=== PATIENT | female | born 1950 | race Caucasian/White ===

== ENCOUNTER 2018-11-12 20:33 | Inpatient (IN) | payer OTHER ==
[~2018-11-12] VITALS: Ht 160 cm; Wt 74.8 kg
[~2018-11-12 20:33] MED LIST: COLACE 100 MG100 MG PO; HYDROCODONE-AP1 EAC6 PO; MIRALAX17 GM PO; NOHOMEMEDICATIONS
[2018-11-12 20:37] VITALS: BP 116/74
[2018-11-12 21:11] LABS: HEMATOCRIT 46.6 % (37.0-47.0); HEMOGLOBIN 15.3 gm/dL (12.0-15.0); MCH 29.9 pg (26.0-34.0); MCHC 32.8 g/dL (28.0-37.0); MCV 91.3 fL (80.0-100.0); PLATELET COUNT 261 thou/uL (150-400); RDW 13.2 % (10.5-14.5); WBC 20.9 thou/uL (4.0-11.0)
[2018-11-12 21:21] LABS: CALCIUM 9.2 mg/dL (8.5-10.1); CREATININE 1.1 mg/dL (0.6-1.0); POTASSIUM 4.6 mmol/L (3.5-5.1)
[2018-11-12 21:27] LABS: ALBUMIN 3.5 g/dL (3.4-5.0); TOTAL BILIRUBIN 0.8 mg/dL (<0.1-1.0); TOTAL PROTEIN 6.7 g/dL (6.4-8.2)
[2018-11-12 21:52] LABS: ABSOLUTE NEUTROPHILS 19.9 thou/uL (1.4-8.2)
[2018-11-12 22:04] LABS: URINE BILIRUBIN NEGATIVE (Negative); URINE BLOOD NEGATIVE (Negative); URINE CLARITY CLEAR; URINE COLOR YELLOW; URINE GLUCOSE-RANDOM* NEGATIVE (Negative); URINE KETONES NEGATIVE (Negative); URINE NITRITE-REFLEX NEGATIVE (Negative); URINE PROTEIN (DIPSTICK) NEGATIVE (Negative); URINE UROBILINOGEN 0.2 E.U./dl (0.2-1.0)
[2018-11-12 22:08] LABS: URINE LEUKOCYTES-REFLEX 3+ (Negative)
[2018-11-12 22:42] LABS: BACTERIA-REFLEX >30 Many /HPF (None Seen); CASTS None Seen /LPF (None Seen); CRYSTALS None Seen /LPF (None Seen); SQUAMOUS None Seen /LPF (0-3); URINE RBC 0-2 Rare /HPF (0-2); URINE WBC-REFLEX >25 Many /HPF (0-5); WBC CLUMPS Many (None Seen)
[2018-11-13] VITALS (9 sets, daily range): BP systolic 112–144; BP diastolic 46–95
--- NOTE | 2018-11-13 01:56 | NUR ---
PT ARRIVED ON UNIT FROM ER AT 0030. ADMITTED WITH UTI AND RASH. RASH IS ITCHY AND PAINFUL TO THE TOUCH. DENIES NEED FOR PAIN MEDICATION. UP INDEPENDENT TO BATHROOM. RESTING COMFORTABLY. NO NEEDS VOICED. CALL LIGHT WITHIN REACH. WILL CONTINUE TO PROVIDE FREQUENT OBSERVATION.
[2018-11-13 05:53] LABS: HEMATOCRIT 43.1 % (37.0-47.0); HEMOGLOBIN 14.2 gm/dL (12.0-15.0); MCH 29.9 pg (26.0-34.0); MCV 90.7 fL (80.0-100.0); RBC 4.76 mil/uL (4.20-5.00); RDW 13.5 % (10.5-14.5); WBC 20.1 thou/uL (4.0-11.0)
[2018-11-13 06:28] LABS: CALCIUM 8.4 mg/dL (8.5-10.1)
--- NOTE | 2018-11-13 16:38 | NUR ---
PT ASSESSED AT START OF SHIFT. SKIN COVERED IN RED PAPULAR RASH THAT ITCHES AND SEAY AT TIMES. MOST HELPFUL IS IV BENEDRYL- PAIN MED DID NOT HELP AT ALL. BENEDRYL CREAM NOT HELPING EITHER. EATING AND DRINKING WELL. FEELS WIRED FROM IV STEROID- NOT ABLE TO SLEEP. HAD BM THIS AM. DR. KRAUSE CONSULTED AND WILL SEE PT TOMORROW.
--- NOTE | 2018-11-14 02:45 | NUR ---
PATIENT ALERT AND ORIENTED X4. UP ADLIB IN ROOM. CONTINUES TO HAVE RASH WITH NO OPEN AREAS NOTED. MEDICATED WITH BENEDRYL PRN MEDICATION X1 AT TIME OF THIS NOTE. COOPERATIVE WITH CARE. IVF INFUSING W/O COMPLICATION. RESTING QUIETLY.
[2018-11-14 04:33] VITALS: BP 110/49
--- NOTE | 2018-11-14 04:40 | NUR ---
PATIENT ABLE TO GET TO SLEEP SHORTLY AFTER PO BENEDRYL GIVEN AND SLEPT WELL DURING THE NIGHT. IVF INFUSING W/O COMPLICATION. WILL MONITOR.
[2018-11-14 05:34] LABS: MCH 29.8 pg (26.0-34.0); MCHC 32.7 g/dL (28.0-37.0); RBC 3.73 mil/uL (4.20-5.00); RDW 13.7 % (10.5-14.5); WBC 18.6 thou/uL (4.0-11.0)
[2018-11-14 05:36] LABS: HEMOGLOBIN 11.1 gm/dL (12.0-15.0)
[2018-11-14 05:50] LABS: ALBUMIN 2.8 g/dL (3.4-5.0); CALCIUM 8.1 mg/dL (8.5-10.1); CREATININE 0.8 mg/dL (0.6-1.0); POTASSIUM 3.7 mmol/L (3.5-5.1); TOTAL BILIRUBIN 0.2 mg/dL (<0.1-1.0); TOTAL PROTEIN 5.8 g/dL (6.4-8.2)
[2018-11-14 07:15] VITALS: BP 104/47
--- NOTE | 2018-11-14 14:59 | NUR ---
PT ADMITTED RELATED TO UTI--RASH. CM REVIEWED CHART AND SPOKE WITH CARE TEAM. CM MET WITH PT AT BEDSIDE THIS DAY. PT IS A&O X4. CM ROLE INTRODUCED. PT INDICATED SHE LIVES IN A HOUSE WITH HER SPOUSE WITH 4 STEPS TO ENTER AND NO STEPS INSIDE. 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 NO DME OR HH HX. PT INDICATED SHE PLANS TO RETURN HOME ONCE MEDICALLY STABLE. CM TO FOLLOW INDICATED WITH DC PLANNING.
[2018-11-14 16:06] VITALS: BP 123/63
--- NOTE | 2018-11-14 16:24 | NUR ---
ASSUMED CARE OF PT AT 0700. ASSESSMENT CHARTED. A&O,X4. UP AD COLLETTE, STEADY GAIT. DENIES PAIN. C/O RED RASH FROM HEAD TO TOE, FACIAL SWELLING AFTER HERBAL SUPPLEMENT. PT STATES RASH IS IMPROVING AND IS CONTROLLED. 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 MEDS GIVEN ORDERED. NO OTHER SKIN CONCERNS. PT IMPROVING TOWARDS GOALS
[2018-11-14 19:15] VITALS: BP 109/61
--- NOTE | 2018-11-15 01:53 | NUR ---
A&O, calm and cooperative; IVF DC; vss, afebrile. Lab reviewed. Patient had no lab order for 11/15/2018, Nursing pracitioner was aware; denied soa. Bed rest now, will keep monitoring.
[2018-11-15 04:04] VITALS: BP 138/73
[2018-11-15 07:10] VITALS: BP 127/73
[2018-11-15 08:27] LABS: ABSOLUTE NEUTROPHILS 14.6 thou/uL (1.4-8.2); BASOPHILS 0.1 % (0.0-2.0); EOSINOPHILS 1.4 % (0.0-3.0); HEMATOCRIT 35.9 % (37.0-47.0); HEMOGLOBIN 11.7 gm/dL (12.0-15.0); LYMPHOCYTES 6.1 % (24.0-44.0); MCH 29.8 pg (26.0-34.0); MCHC 32.7 g/dL (28.0-37.0); MONOCYTES 5.6 % (1.0-8.0); PLATELET COUNT 254 thou/uL (150-400); POLYS 86.8 % (36.0-66.0); RBC 3.94 mil/uL (4.20-5.00); RDW 13.7 % (10.5-14.5); WBC 16.8 thou/uL (4.0-11.0)
[2018-11-15 08:43] LABS: ALBUMIN 2.7 g/dL (3.4-5.0); CALCIUM 8.6 mg/dL (8.5-10.1); POTASSIUM 4.2 mmol/L (3.5-5.1); TOTAL BILIRUBIN 0.2 mg/dL (<0.1-1.0)
--- NOTE | 2018-11-15 12:18 | NUR ---
Assessment completed.vss.Pt was tearful early this shift regarding the rash allover her body.She sejal it has spread to her scalp. Emotional support given. Dr Weller notified and he rounded on pt. Meds and diet tolerated by pt. Pt ambulated in hallways with spouse several times after breakfast.No furtehr c/o.Will continue to monitor.
[2018-11-15 15:58] VITALS: BP 140/66
[2018-11-15 17:15] LABS: BE(vivo) -0.1 mmol/L (-2 to +3); HCO3 23.5 mmol/L (22.0-26.0); PCO2 34.7 mmHg (35.0-45.0); PO2 68.4 mmHg (80.0-100.0); pH 7.448 (7.360-7.450); sO2 94.5 % (92.0-98.0)
[2018-11-15 19:40] VITALS: BP 145/69
--- NOTE | 2018-11-15 23:00 | NUR ---
PT DENIED PAIN.PT STILL HAVE MIKE ALL OVER HER BODY,PT STATED ITCHING SUBSIDED.UP ADLIB IN ROOM WITH STEADY GAIT.PT CONT ON IV ABX ORDERED.PT ABLE TO MAKE HER NEEDS KOWN.CALL LIGHT WITHI REACH.
[2018-11-16 07:58] VITALS: BP 134/63
[2018-11-16 10:04] LABS: HEMATOCRIT 37.1 % (37.0-47.0); MCH 29.4 pg (26.0-34.0); MCHC 32.4 % (28.0-37.0); MCV 90.6 fL (80.0-100.0); RBC 4.09 mil/uL (4.20-5.00); RDW 13.5 % (10.5-14.5); WBC 14.8 thou/uL (4.0-11.0)
[2018-11-16 11:18] LABS: CALCIUM 8.8 mg/dL (8.5-10.1); CREATININE 0.9 mg/dL (0.6-1.0); POTASSIUM 3.8 mmol/L (3.5-5.1)
--- NOTE | 2018-11-16 16:06 | NUR ---
Assumed pt care at 7am.Pt reported feeling better today but still has body rash.Assessment completed.vss.Pt in bed for all meals.good appetite.Dr Weller here,order noted.Pt took shower today and ambulated in hallways several times. Dr Romero notified about consult.Abg and other labs done later this afternoon. Pt might possibly dc home this evening after seen by Dr Romero.Iv antibiotic changed to po this afternoon.Will continue to monitor.
[2018-11-16] MEDS ORDERED: CLARITIN10 M2 PO (18:36)
[2018-11-16] MEDS ORDERED: EPIPEN0.3 MG/0.1 IM (18:36)
[2018-11-16] MEDS ORDERED: PREDNISONE 20 M20 MG PO (18:36)
[2018-11-16] MEDS ORDERED: PEPCID20 MG PO (18:36)
[2018-11-16] MEDS ORDERED: METRONIDAZOLE500 M4 PO (18:36)
[2018-11-16] MEDS ORDERED: ACETAMINOPHEN325 M1 PO (18:36)
[2018-11-16] MEDS ORDERED: CEFUROXIME500 MG PO (18:36)
[2018-11-16 18:54] VITALS: BP 134/63
--- NOTE | 2018-11-16 20:02 | NUR ---
Pt A/OX4,VSS. Up ad letty, no new skin issues noted. Discharged home 1944 with spouse via private car all personal belongings sent with pt. Discharge orders reviewed with pt by day nurse before dc.
[2018-11-16 20:06] VITALS: BP 134/63
[2018-11-17 09:36] LABS: BE(vivo) 0.5 mmol/L (-2 to +3); PCO2 35.1 mmHg (35.0-45.0); PO2 63.9 mmHg (80.0-100.0); pH 7.453 (7.360-7.450); sO2 93.5 % (92.0-98.0)
== END 2018-11-16 19:45 | disposition home or self-care (01) | DRG 915 ==
LOC: ER 20:33 → 4E 23:43 → EROBS 23:43 → 4E 11-13 00:25
PROVIDERS: Emergency Medicine; Hospitalist; Internal Medicine; Nurse Practitioner Family; ADMIT Hospitalist
DX: T78.3XXA Angioneurotic edema, initial encounter (principal); J96.01 Acute respiratory failure with hypoxia; N39.0 Urinary tract infection, site not specified; D72.825 Bandemia; D72.829 Elevated white blood cell count, unspecified; T50.995A Adverse effect of other drugs, medicaments and biological substances, initial encounter; K52.9 Noninfective gastroenteritis and colitis, unspecified; Z90.710 Acquired absence of both cervix and uterus; Y92.89 Other specified places as the place of occurrence of the external cause; Z80.0 Family history of malignant neoplasm of digestive organs; Z87.891 Personal history of nicotine dependence; Z79.899 Other long term (current) drug therapy
CPT/HCPCS: 10084